=== PATIENT | female | born 1940 ===

== ENCOUNTER 2022-05-25 19:56 | Emergency (ER) | payer MEDICARE, SELFPAY ==
--- NOTE | ~2022-05-25 | XR_ITS ---
EXAMINATION: XR CHEST CLINICAL INFORMATION: None provided COMPARISON: None TECHNIQUE: Frontal view of the chest was obtained. FINDINGS: The lungs are clear. No airspace consolidation, pleural effusion, or pneumothorax. The cardiomediastinal silhouette is within normal limits. No acute osseous injury. Bilateral acromioclavicular arthropathy. XR/XR chest 1V IMPRESSION: 1. No acute pulmonary process identified.
[2022-05-25 20:30] VITALS: BP 150/94; PULSE 113; RESP 16; TEMP 37.4; O2SAT 92; BMI 27.4
[2022-05-25 20:59] VITALS: BP 139/80; PULSE 108; RESP 20; TEMP 37; O2SAT 92
--- NOTE | 2022-05-25 21:16 | ED_ITS ---
HPI - URI/Sore Throat General Chief Complaint: Upper Respiratory Symptoms Stated Complaint: +covid c/o cough and sob Time Seen by Provider: 05/25/22 20:51 Source: patient Mode of arrival: ambulatory Limitations: no limitations History of Present Illness HPI Narrative: Patient comes to the emergency room complaining of stuffy nose, throat pain, dry mouth that started 2 days ago. Patient states that she took a home test for COVID-19, it was positive. Patient denies chest pain. Patient denies fever chills. Patient denies significant shortness of breath, but feels that her nose is stuffy and she feels very uncomfortable. Patient has been immunized for COVID-19. Related Data Previous Rx's Medication Instructions Recorded nirmatrelvir 150 mg-ritonavir 100 See Rx Instructions PO .COMPLEX 05/25/22 mg tablets in a dose pack (EUA) #10 ea (Paxlovid) Allergies Allergy/AdvReac Type Severity Reaction Status Date / Time No Known Allergies Allergy Verified 05/25/22 20:34 Review of Systems Review of Systems: Constitutional : No Weight loss, No Fever, No Chills, No Night Sweats, No Fatigue, No Malaise ENT/Mouth : No Hearing loss, No Ear Pain, complaining of Nasal Congestion, No Sinus Pain, No Hoarseness, complaining of sore throat, No Rhinorrhea, No Swallowing Difficulty Eyes: No Eye Pain, No Swelling, No Redness, No Foreign Body, No Discharge, No Vision Changes Cardiovascular : No Chest Pain, No SOB, No Dyspnea on Exertion, No Orthopnea, No Edema, No Palpitations Respiratory : No Cough, No Sputum, No Wheezing, No Smoke Exposure, No Dyspnea Gastrointestinal : No Nausea, No Vomiting, No Diarrhea, No Constipation, No abdominal Pain, No Hematochezia, No Melena Genitourinary : no irregular bleeding, No Dysuria, No Urinary Frequency, No Hematuria, No Urinary Incontinence, No Urgency, No Flank Pain, No Urinary Flow Changes, No Hesitancy Musculoskeletal : No joint pain, No Myalgias, No Joint Swelling Skin : No Skin Lesions, No rash Neuro : No Weakness, No Numbness, No Paresthesias, No Loss of Consciousness, No Dizziness, No Headache Psych : No Anxiety/Panic, No Depression, No SI/HI/AH/VH, No Social Issues, Heme/Lymph: No Bruising, No Bleeding,No Lymphadenopathy Endocrine : No Polyuria, No Polydipsia, No Temperature Intolerance [facility] Past Medical History Medical History (Updated 05/25/22 @ 22:33 by Gisel Mina MD) Diabetes type 2, controlled Hypertension Social History Social History Alcohol intake: never Patient Tobacco Use Status: Never used Tobacco Use of substances other than those prescribed or required for medical reasons: No Physical Exam Vital Signs: Vital Signs: Last Vital Signs Temp 98.6 F 05/25/22 20:59 Pulse 93 05/25/22 22:03 Resp 13 05/25/22 22:03 BP 144/86 H 05/25/22 22:03 Pulse Ox 97 05/25/22 22:03 O2 Del Method 05/25/22 22:03 BMI result Body Mass Index 27.4 Const: Other: Appearance: Alert. Oriented X3. No acute distress. Eyes: Pupils equal, round and reactive to light. ENT: Pharynx normal. Neck: Normal inspection. Neck supple. No lymph nodes noted. No crepitus CVS: Normal heart rate and rhythm. Pulses normal. Normal S1 and S2 Respiratory: No respiratory distress. Breath sounds normal. No Wheezing. No rales Abdomen: Soft and nontender. No rigidity. No distention. Skin: Skin warm and dry. Normal skin color. Normal skin turgor. Extremities: No lower extremity edema. No Lacerations. No Rash Neuro: Oriented X 3. No motor deficit. No sensory deficit. Moving all extremities. No slurred speech. CN 2 through 12 grossly intact Psych: calm, cooperative, normal affect Course Course Course Narrative: Patient is well-appearing. She is a little bit tachycardic, lungs are clear, patient has no pain in the lower extremities especially in the calves. Patient will be receiving IV fluids, chest x-ray and COVID test pending. Patient tested positive for COVID-19. Patient received 1 L of fluids, heart rate now in the low 90s. Patient feeling well, x-ray negative. I discussed with the patient the benefits of monoclonal antibody infusion. Patient declined, patient will be taking p.o. Paxlovid MDM - URI/Sore Throat Lab Data Labs: Lab Results 05/25/22 Range/Units 21:39 COVID-19 ([facility]S) Positive A (Negative) COVID-19 Clin Com See Note Imaging Data Chest x-ray: Radiologist's impression: FINDINGS: The lungs are clear. No airspace consolidation, pleural effusion, or pneumothorax. The cardiomediastinal silhouette is within normal limits. No acute osseous injury. Bilateral acromioclavicular arthropathy. XR/XR chest 1V IMPRESSION: ? 1. No acute pulmonary process identified. Discharge Plan Discharge Clinical Impression: COVID-19 Patient Disposition: Home, Self-Care Instructions: COVID-19 (Coronavirus Disease 2019) (ED) Additional Instructions: Please follow-up with your primary care physician tomorrow. If you have any worsening or new symptoms, please return to the emergency room or call 911 Prescriptions: New Paxlovid (EUA) 150-100 mg tablets,dose pack See Rx Instructions .ROUTE .COMPLEX Qty: 10 0RF Rx Instructions: take ONE 150 mg tablet of nirmatrelvir with ONE 100 mg tablet of ritonavir twice daily for 5 days
[2022-05-25] MEDS: Acetaminophen 325 MG TABLET 975 MG PO (21:30)
[2022-05-25] MEDS: 0.9 % Sodium Chloride 1,000 ML 999 ML IVCONT (21:37)
[2022-05-25 22:03] VITALS: BP 144/86; PULSE 93; RESP 13; O2SAT 97
[2022-05-25 22:07] LABS: COVID-19 Test Positive (Negative); IDNOW Serial# 55D5AD1C
== END 2022-05-25 23:06 | disposition home or self-care (01) ==
PROVIDERS: Emergency Provider Emergency Medicine
DX: U07.1 COVID-19 (principal); R00.0 Tachycardia, unspecified; E11.9 Type 2 diabetes mellitus without complications; I10 Essential (primary) hypertension
CPT/HCPCS: 71045; 87635; 99283; 99285